=== PATIENT | male | born 1980 ===

== ENCOUNTER 2018-02-13 14:41 | Emergency (ER) | payer BC ==
[2018-02-13 15:50] VITALS: BP 121/86
[2018-02-13] MEDS ORDERED: Albuterol/Ipratropium NEB.SOL* Albuterol 2.5 MG/Ipratropium 0.5 MG 3 ML INH ONE (15:57)
--- NOTE | 2018-02-13 16:34 | UC ---
Respiratory Complaint HPI - HPI Summary HPI Summary: 37 year old male presents with 3-4 week history of an intermittent harsh non- productive cough. Over the past 4 days cough has become more persistent, it is now productive for yellow-green sputum, and he has felt more short of breath. Associated with a subjective fever yesterday. Denies nasal congestion, ear pain , sore throat, chest pain, abdominal pain, nausea, or vomiting. - History of Current Complaint Chief Complaint: UCRespiratory Stated Complaint: COUGH, CONGESTION Time Seen by Provider: 02/13/18 16:28 Pain Intensity: 4 - Allergies/Home Medications Allergies/Adverse Reactions: Allergies Allergy/AdvReac Type Severity Reaction Status Date / Time No Known Allergies Allergy Verified 02/13/18 15:50 Home Medications: Home Medications Dextromethorphn/Acetaminoph/Cp [Vicks Nyquil Cold & Flu N] 1 liq PO QPM PRN [History Confirmed 02/13/18] Ibuprofen TAB* [Advil TAB*] 200 mg PO Q6H PRN 02/13/18 [History Confirmed ] PMH/Surg Hx/FS Hx/Imm Hx Previously Healthy: Yes - Denies significant PMH - Surgical History Surgical History: Yes Surgery Procedure, Year, and Place: appy, vasectomy - Family History Known Family History: Positive: Non-Contributory - Social History Occupation: Employed Full-time Lives: With Family Alcohol Use: Weekly Substance Use Type: None Smoking Status (MU): Never Smoked Tobacco Review of Systems All Other Systems Reviewed And Are Negative: Yes Constitutional: Positive: Fever. Negative: Chills Eyes: Negative: Drainage, Eye Redness ENT: Negative: Sore Throat, Ear Ache, Nasal Discharge, Sinus Congestion, Sinus Pain/Tenderness Respiratory: Positive: Shortness Of Breath, Cough Cardiovascular: Negative: Palpitations, Chest Pain Gastrointestinal: Negative: Abdominal Pain, Vomiting, Nausea Is Patient Immunocompromised?: No Physical Exam - Summary Physical Exam Summary: GENERAL APPEARANCE: Well developed, well nourished, alert and cooperative, and appears to be in no acute distress. EYES: Conjunctiva clear. No drainage. Vision is grossly intact. EARS: External auditory canals and tympanic membranes clear, hearing grossly intact. NOSE: No nasal discharge. THROAT: Oral cavity and pharynx normal. No inflammation, swelling, exudate, or lesions. Teeth and gingiva in good general condition. NECK: Neck supple, non-tender without lymphadenopathy. CARDIAC: Normal S1 and S2. No S3, S4 or murmurs. Rhythm is regular. There is no peripheral edema, cyanosis or pallor. Extremities are warm and well perfused. Capillary refill is less than 2 seconds. LUNGS: Diffuse bilateral wheezes. Harsh, non-productive, bronchospastic cough. ABDOMEN: Positive bowel sounds. Soft, nondistended, nontender. No guarding or rebound. No masses or hepatosplenomegally. MUSKULOSKELETAL: ROM intact to all extremities. No joint erythema or tenderness. Normal muscular development. Normal gait. SKIN: Skin normal color, texture and turgor with no lesions or eruptions. Vital Signs: Initial Vital Signs Temp 98.7 F 02/13/18 15:45 Pulse 86 02/13/18 15:45 Resp 18 02/13/18 15:45 BP 121/86 02/13/18 15:45 Pulse Ox 95 02/13/18 15:45 UC Diagnostic Evaluation - Laboratory O2 Sat by Pulse Oximetry: 95 - Radiology Radiology Interpretation Completed By: Radiologist Summary of Radiographic Findings: Patient Name: DANNY GARCIA Medical Record#: [id number]. Ordering Physician: Jessica Rice MD Acct.#: [id number]. : Age: 37 Sex: M Location: [facility]. Exam Date: 02/13/181556 ADM Status: REG ER. Order Information: CHEST PA LAT 2 VWS. Accession Number: [id number]. CPT: 92541. HISTORY: cough, wheeze, h/o PNA. COMPARISONS : None. VIEWS: 4: Frontal dual-energy and lateral views of the chest. FINDINGS : CARDIOMEDIASTINAL SILHOUETTE: The cardiomediastinal silhouette is normal. TAL: The tal are normal. PLEURA: The costophrenic angles are sharp. No pleural abnormalities are noted. LUNG PARENCHYMA: The lungs are clear. ABDOMEN : The upper abdomen is clear. There is no subphrenic gas. BONES AND SOFT TISSUES: No bone or soft tissue abnormalities are noted. OTHER: None. IMPRESSION: NO ACTIVE CARDIOPULMONARY DISEASE. Respiratory Course/Dx - Course Course Of Treatment: 37 year old male presents with 3-4 week history of an intermittent harsh non-productive cough. Over the past 4 days cough has become more persistent, it is now productive for yellow-green sputum, and he has felt more short of breath. Associated with a subjective fever yesterday. Denies nasal congestion, ear pain, sore throat, chest pain, abdominal pain, nausea, or vomiting. Afebrile. VSS. Exam revealed no respiratory distress, harsh branchospatic cough, and bilateral diffuse wheezes. CXR showed no acute cardiopulmonary disease. Will treat for acute bronchitis with RAD with course of azithromycin and albuterol inhaler PRN. He is to follow up with his PCP in 5- 7 days if no improvement. Warning symptoms reviewed with patient. Verbalizes understanding and agrees with POC. - Differential Dx/Diagnosis Differential Diagnosis/HQI/PQRI: Bronchitis, Influenza, Lower Resp Infection, Other - URI Provider Diagnosis: Acute bronchitis, Reactive airway disease that is not asthma Discharge - Sign-Out/Discharge Documenting (check all that apply): Patient Departure All imaging exams completed and their final reports reviewed: Yes - Discharge Plan Condition: Stable Disposition: HOME Prescriptions: Albuterol HFA INHALER* [Ventolin HFA Inhaler*] 2 puff INH Q4H PRN #1 mdi PRN Reason: Sob/Wheezing Azithromyxin XU (NF) [Z-Xu (Zithromax) 250 mg tabs #6] 2 tab PO .TODAY, THEN 1 DAILY #6 tab Patient Education Materials: Acute Bronchitis (ED) Referrals: Dariel Wilson DO [Primary Care Provider] - 7 Days (Follow up in 5-7 days if no improvement in symptoms.) Additional Instructions: Your chest x-ray in the clinic today showed no evidence of pneumonia. I suspect that your symptoms are from an acute bronchitis. With the duration of symptoms and change in sputum I will treat you with an antibiotic for the infection. Start azithromycin 2 tabs today then 1 tab a day for next 4 days. Use albuterol inhaler 2 puffs every 4-6 hours as needed for wheezing of shortness of breath. Follow up with you primary care provider in 5-7 days if no improvement in symptoms. Seek immediate medical attention in the emergency room if you develop fever greater than 100.5 F, have chest pain, shortness of breath or wheezing that is not relieved by the inhaler, weakness, dizziness, or any worsening of symptoms. - Billing Disposition and Condition Condition: STABLE Disposition: Home - Attestation Statements Provider Attestation: I was available for consult. This patient was seen by the [facility]. The patient was not presented to, seen by, or examined by me. -Gerhard
== END 2018-02-13 16:55 | disposition home or self-care (01) ==
LOC: UCCORT 14:41
DX: J20.9 Acute bronchitis, unspecified (principal)
CPT/HCPCS: 71046; 99212; A9270-GY; G0463

== ENCOUNTER 2018-06-24 07:42 | Day surgery (SDC) | payer BC, OTHER ==
--- NOTE | 2018-06-13 13:03 | HP ---
PREOPERATIVE HISTORY AND PHYSICAL: DATE OF ADMISSION/SURGERY: 06/24/18 DATE OF OFFICE VISIT: 06/11/18 ATTENDING SURGEON: Dr. Jerardo Adams* (dictated by BARBER Feliz). PROCEDURE: Right shoulder arthroscopic rotator cuff repair, decompression, debridement, and subpectoral biceps tenodesis. CHIEF COMPLAINT: Right shoulder pain. HISTORY OF PRESENT ILLNESS: Sher is a 37-year-old male, who presents to the clinic for right shoulder pain due to a rotator cuff tear and biceps tendinitis. He has failed conservative measures and therefore agreed to undergo a right shoulder arthroscopic rotator cuff repair, decompression, debridement, and subpectoral biceps tenodesis with Dr. Adams on 06/24/18. PAST MEDICAL HISTORY: Denies current problems. PAST SURGICAL HISTORY: Appendectomy. The patient denies prior complications to anesthesia. MEDICATIONS: No active medications. ALLERGIES: No known drug allergies. FAMILY HISTORY: Positive for diabetes, heart disease, hypertension, cancer. Denies family history of DVT or PE. SOCIAL HISTORY: He lives with his spouse. He works at a power plant. He denies tobacco use. He reports occasional alcohol consumption. He is right- hand dominant. REVIEW OF SYSTEMS: A 14-point review of systems was reviewed with the patient. Positive for current complaint, otherwise negative. Denies fever, chills, numbness, tingling. Denies history of bleeding disorder. Denies history of DVT or PE. PHYSICAL EXAMINATION GENERAL: A 37-year-old well-developed, well-nourished male, in no acute distress. VITAL SIGNS: Height 67, weight 214, pulse 77, blood pressure 132/72, temperature 97.4, BMI 33.5. HEENT: Normocephalic, atraumatic. PERRLA. Throat clear. NECK: Supple. PULMONARY: Lungs are clear to auscultation bilaterally. No wheezing, rhonchi or rales. CARDIO: Regular rate and rhythm. S1, S2. No murmurs, gallops or rubs. No edema. ABDOMEN: Positive bowel sounds. Soft, nontender. NEURO: Alert and oriented x3. Cranial nerves grossly intact. MUSCULOSKELETAL: Right upper extremity: Skin is intact. No warmth or erythema. Tender to palpation of the subacromial space. Skin is intact. No abrasions or open wounds. Forward flexion less than 165, external rotation is 70. Full range of motion of the elbow, wrist, and hand. +5/5 project developer strength, internal rotation to T8. Sensation is intact to light touch distally. DIAGNOSTIC STUDIES: MRI reviewed partial tearing of supraspinatus, infraspinatus tendon but no full-thickness rotator cuff tear. There is mild joint arthritis and biceps tendinitis with degeneration of the superior labrum. IMPRESSION: Right shoulder rotator cuff tear and biceps tendinitis. PLAN: The patient is scheduled to undergo a right shoulder arthroscopic rotator cuff repair, decompression, debridement, subpectoral biceps tenodesis with Dr. Adams on 06/24/18. Percocet will be used for postop pain management. He will follow up in 10 to 14 days postop for followup and suture removal. BARBER FELIZ [id number]/[facility] #: [id number] GÓMEZ
[~2018-06-24 07:42] MED LIST: Buffered Lidocaine 1% SYRIN* 1 ML/SYRINGE INTRADERM ONE; Famotidine IV* 10 MG/ML 2 ML (20 mg) IV ONE; Lactated Ringers 1000 ML Bag* 1,000 ML IV SCH
[2018-06-24] MEDS ORDERED: ceFAZolin 2 GM PREMIX in ORs 2 GM/50 ML BAG IVPB ONE (08:06)
[2018-06-24] MEDS ORDERED: Famotidine IV* 10 MG/ML 2 ML (20 mg) ONE (08:06)
[2018-06-24] MEDS ORDERED: Bupivacaine 0.25% SDV* 30 ML ONE (09:29)
[2018-06-24] MEDS ORDERED: Midazolam* 1 MG/ML 5 ML VIAL (5 MG) ONE (09:53)
[2018-06-24] MEDS ORDERED: fentaNYL* 50 MCG/ML 2 ML VIAL (100 MCG VIAL) ONE ×2 (09:53→10:41)
[2018-06-24] MEDS ORDERED: ROPIVACAINE 5 MG/ML 30 ML BTL (0.5%) ONE (09:56)
[2018-06-24] MEDS ORDERED: Lidocaine 1%* 5 ML VIAL ONE (09:57)
[2018-06-24] MEDS ORDERED: DiMENhydriNATE IV* 50 MG/ML VIAL IV PUSH PRN (10:59)
[2018-06-24] MEDS ORDERED: Naloxone* 0.4 MG/ML 1 ML VIAL IV PRN (10:59)
[2018-06-24] MEDS ORDERED: Acetaminophen TAB* 325 MG PO PRN (10:59)
[2018-06-24] MEDS ORDERED: oxyCODONE TAB* 5 MG TAB PO PRN (10:59)
[2018-06-24] MEDS ORDERED: HYDROmorphone INJ1* 1 MG/ML SYRINGE IV PRN (10:59)
[2018-06-24] MEDS ORDERED: Ketorolac INJ* 30 MG/ML 1 ML VIAL ONE (11:22)
[2018-06-24] MEDS ORDERED: Succinylcholine* 20 MG/ML 10 ML VIAL ONE (11:22)
[2018-06-24] MEDS ORDERED: Dexamethasone IV* 4 MG/ML 1 ML (4 MG) ONE (11:22)
[2018-06-24] MEDS ORDERED: Ondansetron INJ* 2 MG/ML VIAL ONE (11:22)
[2018-06-24] MEDS ORDERED: Lidocaine 2% PF * 5 ML VIAL ONE (11:22)
[2018-06-24] MEDS ORDERED: Propofol* 10 MG/ML 20 ML BTL ONE (11:22)
[2018-06-24 12:47] VITALS: BP 118/81
--- NOTE | 2018-06-25 07:17 | OP ---
DATE OF OPERATION: 06/24/18 - [facility] DATE OF : 80 SURGEON: Jerardo Adams MD ASSISTANTS: 1. BARBER Colvin 2. DEVAUGHN Weber ruby developer was needed for the entirety of the case to help with positioning, retraction, and was utilized throughout all portions of the case. ANESTHESIOLOGIST: Dr. Hu ANESTHESIA: General interscalene block. PRE-OP DIAGNOSIS: Right shoulder partial thickness tear of the rotator cuff with acromioclavicular joint arthritis and bicipital tendinitis. POST-OP DIAGNOSIS: Right shoulder partial thickness tear of the rotator cuff with acromioclavicular joint arthritis and bicipital tendinitis. OPERATIVE PROCEDURE: Right shoulder arthroscopy with: 1. Extensive glenohumeral debridement including debridement of the anterior, posterior superior labrum. 2. Subacromial decompression with acromioplasty. 3. Distal clavicle excision. 4. Rotator cuff repair using Regeneten patch 5. Open biceps tenodesis. COMPLICATIONS: None. ESTIMATED BLOOD LOSS: Minimal. IMPLANTS: Regeneten patch size medium one Q-Fix x1. INDICATIONS: Sher Obrien is a 37-year-old man who sustained a work-related injury in February. He has failed conservative management and elected to proceed with surgical treatment. Risks and benefits were discussed at length included, but are not limited to bleeding, infection, damage to nerves, vessels , surrounding structures; wound healing, persistent pain, need for further surgery, scarring, stiffness, incomplete relief of symptoms, risks of anesthesia. DESCRIPTION OF PROCEDURE: The patient was greeted in the preoperative area by the attending surgeon. Correct extremity was marked and consent was confirmed. The patient underwent interscalene nerve block by anesthesiologist and he was brought back to the operating suite where he was placed in the supine position on the operating table. He then underwent general anesthesia and endotracheal intubation after which he was placed in the left lateral decubitus position. An axillary roll was placed. All bony prominences were padded and was secured with a pegboard. The right shoulder was prepped and draped in the usual sterile fashion beginning with chlorhexidine soap, scrub, alcohol wipe and a final prep with ChloraPrep. After appropriate surgical pause indicating side, site, procedure and administration of antibiotics, the standard postero-lateral portal was made sharply with an 11 blade. Scope was introduced into the joint and the joint was examined. There was grade 0 to 1 changes to the glenohumeral joint. The anterior, posterior and superior labrum has stable fraying. There was evidence of type 2 SLAP tear. Inferior recess was intact. The undersurface of the rotator cuff had some high- grade partial thickness tearing with an unstable flap. The anterior portals was made in an outside-in fashion. Shaver was used to debride back the anterior, posterior and superior labrum. The undersurface of the subscap was intact. The biceps was then tenotomized for later tenodesis. There was evidence of damage to the fran and synovitis. Once the intra-articular portion was completed, attention was directed to the subacromial space. The scope was inserted in the subacromial space, the lateral portal was made in the outside-in fashion. Shaver was used to debride back the abundant bursa that was present. Once the significant bursectomy was done, there was a large hooked anterolateral spur which was debrided back using the 4-[address] to the level of the AC joint. The meniscus and the AC joint were still visible. This was removed using la and and electrocautery device and all loose debris was removed from this portion of the case. Attention was directed to the AC joint. The yesy was brought to the anterior portal and the distal 8 mm were then debrided back in the distal clavicle with care to prevent damage to the CC ligament. All loose debris was removed. Attention was directed to the rotator cuff. There was high-grade partial thickness tearing of the undersurface, but the bursal side was intact. Decision was made to treat this with Regeneten patch which was designed for this. A size medium patch was then brought to the field and placed under arthroscopic and direct visualization through a separate stab incision. The cannula was placed to facilitate passage of the medial cuff she. Once these were secured, this was then secured laterally with bone she which were packed with excellent purchase. The shoulder was gently taken through range of motion and graft was found to be in good position. The wounds were copiously irrigated with sterile saline and attention directed to the biceps. The bed was air planed to the right side. The anterior aspect of the shoulder was prepped again using ChloraPrep. The 15-blade was used to make the incision in line with the biceps tendon. Soft tissue was carefully dissected to expose the pec tendon. Once this was done, the reminder of the dissection was done bluntly. The biceps was brought through the wound center, abundant synovitis was present. The groove was then prepared in usual fashion with electrocautery device, red ball rasp, and osteotome. Then the Q-Fix anchor was then deployed with excellent purchase. The sutures were then passed through the tendon in a Tapan-Hector type configuration. The excess stump was excised and the biceps was shuttled back to the wound and this was then secured. The wounds were then copiously irrigated and the anterior wound was closed with 3-0 Monocryl in 1 layer. The portals were closed with 3-0 nylon. Sterile dressing applied. Cryo/ Cuff and UltraSling were applied. He was awoken from anesthesia and transferred to the PACU in stable condition. POSTOPERATIVE PLAN: He will be discharged on pain medication. DVT prophylaxis was considered, but deferred due to no previous personal or family history. We will start therapy this week. [id number]/[facility] #: [id number] GÓMEZ
== END 2018-06-24 13:12 | disposition home or self-care (01) ==
LOC: OREAST 07:42
PROVIDERS: ATTEND Orthopaedic Surgery
DX: S46.011A Strain of muscle(s) and tendon(s) of the rotator cuff of right shoulder, initial encounter (principal); M75.21 Bicipital tendinitis, right shoulder; M19.011 Primary osteoarthritis, right shoulder; G89.18 Other acute postprocedural pain; X58.XXXA Exposure to other specified factors, initial encounter; Y92.9 Unspecified place or not applicable; Y99.0 Civilian activity done for income or pay
CPT/HCPCS: C1713; C1776; J0330; J0690; J1100; J1885; J2250; J2405; J2704; J2795; J3010; J3490